=== PATIENT | male | born 1950 | race Caucasian/White ===

== ENCOUNTER 2016-05-25 18:25 | Emergency (ER) | payer OTHER ==
[~2016-05-25] VITALS: Ht 177.8 cm; Wt 75.0 kg
[~2016-05-25 18:25] MED LIST: DIG125 PO; QTP25T PO; REM15 PO; SERT25TA2 PO; WARF4TAB2 PO
[2016-05-25 18:30] VITALS: BP 147/104; PULSE 73; RESP 18; O2SAT 99
[2016-05-25 19:07] LABS: BASOPHILS % (AUTO) 0.5 % (0-3); EOSINOPHILS % (AUTO) 0.5 % (0-5); MONOCYTES % (AUTO) 9.8 % (4-12); Mean Corpuscular Hemoglobin 34.9 pg (27.0-35.0); Mean Corpuscular Volume 97.9 fL (81-100); NEUTROPHILS % (AUTO) 52.2 % (40-74); Platelet Count 162 bil/L (150-400)
--- NOTE | 2016-05-25 19:33 | ED.REPORT ---
HPI-Chest Pain 40 and Over Date of Service May 25, 2016 ED Provider: Dr. Casey Law D.O. A 65 year old male with a history of anxiety, depression, and atrial fibrillation on Warfarin s/p pacemaker placement presents to the ED with chest pain onset one hour prior to arrival. The pain is described as pressure. Associated symptoms include headache and nausea. The patient denies myalgias, nuchal rigidity, or fever. He has not had similar pain in the past. Nursing Notes Stated Complaint: HEADACHE,NAUSEA, CHEST PAIN Chief Complaint: Chest Pain Nursing Notes Reviewed: Yes Allergies: Coded Allergies: No Known Allergies (Unverified Allergy, Unknown, 12/01/15) Scheduled Digoxin-Expunged Drug, Do Not Renew! (Digoxin-Expunged Drug, Do Not Renew!) 125 Mcg Tablet 125 MCG PO DAILYWL Mirtazapine-Expunged Drug, Do Not Renew! (Remeron-Expunged Drug, Do Not Renew!) 15 Mg Tablet 15 MG PO HS QUEtiapine-Expunged Drug, Do Not Renew! (SEROquel-Expunged Drug, Do Not Renew!) 25 Mg Tablet 50 MG PO BID Sertraline-Expunged Drug, Choose New Med! (Sertraline-Expunged Drug, Choose New Med!) 25 Mg Tablet 25 MG PO DAILY Warfarin Sodium Inactive Drug Do Not Use (Coumadin Inactive Drug Do Not Use) 4 Mg Tablet 4 MG PO DAILYWD General Time Seen by MD: 19:33 Chief Complaint Chest pain Hx Obtained From: Patient Arrived By: Walk-in Sudden in Onset?: Yes Onset Occurred: 1 - 4 hours ago Symptom Duration: Since onset Location: : Chest left: Chest right Quality: Painful, Pressure Severity: Current: Moderate Severity: Maximum: Moderate Associated with: Reports: Nausea, Denies: Fever Pertinent Negative: Relieved by nothing Context Related History: Reports: Anxiety disorder, Arrhythmia Recent Healthcare: No recent doctor visit Similar Sx Previous: No Past Medical History Past Medical History Notes: 07/02/12 Echo results: Interpretation Summary 1. Mildly dilated left ventricle with mild global hypokinesis with an estimated EF of 40-45%. 2. Normal right ventricular size and systolic function. 3. Mild to moderate mitral regurgitation into a dilated left atrium. Past Medical History Atrial Fibrillation on Warfarin Anxiety Depression Past Surgical History Pacemaker w/ defibrillator Prostatectomy Smoking History Current Every Day Smoker Social History Other Social History: Good social support, Lives alone, Local resident Ambulatory Status Independent Review of Systems Review of Systems Note: - Nuchal rigidity Constitutional: Denies: Fever Cardiovascular: Reports: Chest pain GI: Reports: Nausea Musculoskeletal: Denies: Myalgia Neurologic: Reports: Headache Complete sys rev & neg: except as marked. Physical Exam Initial Vital Signs Vital Signs (First) Date Time Temp Pulse Resp B/P Pulse Ox O2 Delivery O2 Flow Rate FiO2 05/25/16 18:30 36.4 73 18 147/104 99 Room Air Initial VS: Reviewed Head / Eyes: Atraumatic, Normocephalic ENT: Conjunctiva normal, No scleral icterus Neck: Supple, Full range of motion Skin: Warm, Dry, No cyanosis Neurologic: Alert, Oriented, Nonfocal Psychiatric: Mood/affect normal, Behavior normal, Normal thought content General/Constitutional: Awake, Alert, No acute distress Respiratory / Chest: Breath sounds NL, Breath sounds = bilat, No respiratory distress Cardiovascular: Heart rate NL, Heart sounds NL Heart Rate / Rhythm: Positive: Irregular rhythm Interpretation & Diagnostics Lab Results Interpretation Result Diagram: 05/25/16 1900 05/25/16 190 Test 05/25/16 19:00 05/25/16 21:55 White Blood Count 5.7th/mm3 (3.8-10.1) Red Blood Count 4.33mil/mm3 (4.40-5.80) Hemoglobin 15.1g/dL (13.8-17.2) Hematocrit 42.4% (41.0-50.0) Mean Corpuscular Volume 97.9fL (81-100) Mean Corpuscular Hemoglobin 34.9pg (27.0-35.0) Mean Corpuscular Hemoglobin Concent 35.6% (32.0-37.0) Red Cell Distribution Width 12.8% (12.3-15.4) Platelet Count 162bil/L (150-400) Neutrophils (%) (Auto) 52.2% (40-74) Lymphocytes (%) (Auto) 36.7% (14-46) Monocytes (%) (Auto) 9.8% (4-12) Eosinophils (%) (Auto) 0.5% (0-5) Basophils (%) (Auto) 0.5% (0-3) Prothrombin Time 32.9sec (8.1-12.5) Prothromb Time International Ratio 3.01ratio Sodium Level 133mEq/L (134-144) Potassium Level 4.8mEq/L (3.5-5.2) Chloride Level 94mEq/L (97-108) Carbon Dioxide Level 25mmol/L (18-29) Blood Urea Nitrogen 19mg/dL (8-27) Creatinine 0.88mg/dL (0.76-1.27) Estimat Glomerular Filtration Rate 93mL/min (>59) Glucose Level 62mg/dL (60-99) Calcium Level 9.0mg/dL (8.5-10.1) Magnesium Level 2.0mg/dL (1.6-2.6) Total Bilirubin 0.7mg/dL (0.0-1.2) Aspartate Amino Transf (AST/SGOT) 38U/L (0-50) Alanine Aminotransferase (ALT/SGPT) 33U/L (0-44) Alkaline Phosphatase 59U/L (25-160) Total Protein 7.1g/dL (6.4-8.4) Albumin 4.2g/dL (3.4-5.0) Hold [place] Top Tube Received (Received) Troponin T 0.010ug/L (0.0-0.011) ECG Interpretation ECG Interpretation: ECG 1851 Atrial fibrillation rate [address] segments No signs of STEMI Time: 18:51 Interpreted by: ED physician ECG Interpretation: Atrial fibrillation rate 72 Anteroseptal infarct, age indeterminate Prolonged QT interval No STEMI Time: 19:44 Interpreted by: ED physician X-Ray Chest Interpretation Chest Xray Interpretation: IMPRESSION: No acute cardiopulmonary disease process. Dictated by: Norma Jones MD, PhD on 05/25/2016 at 20:21 View: Portable, 1 view Interpretation / Wet Read by: Interpret - Radiologist CT Head Interpretation IMPRESSION: No acute intracranial disease process. Dictated by: Norma Jones MD, PhD on 05/25/2016 at 21:13 Study: Head CT no contrast Interpretation / Wet Read by: Interpret - Radiologist Re-Eval/Medical Decision Med Decision/Clinical Course Mr. Fuller is a very pleasant 65-year-old male who presents for evaluation of headache and chest pain. He states that it is dull headache all day today while coming to the hospital he developed an ache in his chest that seemed to last for about 5 minutes. The ache in his chest is now gone. He still has a dull headache. He does not have any ripping or tearing pain. He did not have any fever or any nuchal rigidity. On my examination his neck was supple. His cranial nerves were intact. His cardiopulmonary examination is otherwise normal. He had symmetric pulses bilaterally. EKG did not show evidence of acute IA. Serial troponins were normal. Head scan was negative for acute hemorrhage. My recommendations were hospital observation for serial troponins and watching him closely secondary to headache. Mr. Fuller declines this. Initially when I walked in the room he was dressed and ready to go. He certainly did not wish to stay any longer. I warned him that if the chest pain returned this certainly could be a heart attack. He agrees to return if he has any problems. Discharge was sober and lucid and certainly could make his own medical decisions. He made an informed decision. He was ready to go. We did give him a dose of acetaminophen which helped the headache. We will call a taxi cab to take him home. He does agree to follow-up tomorrow. Source of Hx: Old records Time of Eval: 20:47 Patient Status: Condition improved Re-Evaluation/Progress Note: Patient rechecked. He had his clothes on and stated he was "ready to escape." Discussed with patient plan for head CT. Patient agrees with plan, is convinced to stay, and all questions were addressed. Time of Eval: 22:20 Patient Status: Condition improved Re-Evaluation/Progress Note: Discussed with patient x-ray, CT, and lab results. Recommended admit or several repeat troponin levels. Patient declines and would prefer to be discharged. Discussed with patient diagnosis, follow-up instructions, and return to the ER instructions. Patient agrees with plan for care and all questions were addressed. Counseled Regarding: Diagnosis, Lab results, Need for follow-up, When/why to return to ED Discharge & Departure Primary Impression: Headache Headache type: unspecified Headache chronicity pattern: unspecified pattern Intractability: not intractable Qualified Code: R51 - Headache Additional Impression: Chest pain Chest pain type: precordial chest pain Qualified Code: R07.2 - Precordial pain Disposition: Home Discharge Condition All VS Reviewed: Yes Condition: Stable Patient Instructions: Acute Headache (ED), Chest Pain (ED) Additional Instructions: The CAT scan of your brain did not show any acute pathology. The serial heart blood tests were normal. The EKG did not show signs of a heart attack. Your chest x-ray was normal. Your blood pressure was symmetric in both arms and the pain was not consistent with an aortic dissection. The cause of your symptoms is uncertain. You need to be seen in follow-up tomorrow. Call your doctor tomorrow and discuss the chest pain and headache. Do not hesitate to return to the emergency department if any further chest pain or if you develop a headache, fever, or neck stiffness. It was very nice meeting you. Your INR is 3.0 Referrals: [facility] (PCP) Amber Attestation Portions of this note were transcribed by Patricia Truong. I, Dr. Law, personally performed the history, physical exam, and medical decision-making; I reviewed and confirmed the accuracy of the information in the transcribed note. Signed by: Amber Sabillon, 05/25/2016, 23:11 copies to: [facility] Casey Law DO May 25, 2016 19:33 PATRICIA TRUONG May 25, 2016 20:42
[2016-05-25 19:39] LABS: TROPONIN T < 0.010 ug/L (0.0-0.011)
[2016-05-25 19:54] LABS: INR 3.01 ratio
--- NOTE | 2016-05-25 20:24 | DRSVH ---
PROCEDURE: X-RAY CHEST ONE VIEW, PORTABLE ([id number]) INDICATIONS: chest pain TECHNIQUE: One view of the chest was acquired. COMPARISON: [facility], CT, CT ANGIO CHEST PE, 12/01/2015, 17:54. FINDINGS: Surgical changes and devices: Single lead cardiac pacer.. Lungs and pleura: No pleural effusions or pneumothorax. Lungs are clear. Mediastinum: Mediastinal contours appear normal. Heart size is normal. Bones and chest wall: Old left-sided rib fractures are noted. No suspicious bony lesions. Overlyin g soft tissues appear unremarkable. IMPRESSION: No acute cardiopulmonary disease process. Dictated by: Norma Jones MD, PhD on 05/25/2016 at 20:21 Approved by: Norma Jones MD, PhD on 05/25/2016 at 20:22
--- NOTE | 2016-05-25 21:17 | DRSVH ---
PROCEDURE: CT BRAIN WITHOUT CONTRAST ([id number]) INDICATIONS: headache, INR 3 TECHNIQUE: Noncontrast 4.5 mm thick angled axial sections acquired from the foramen magnum to the vertex, with c oronal reformats. COMPARISON: [facility], CT, BRAIN W/O CONTRAST, 02/16/2012, 19:35. FINDINGS: Image quality: Excellent. CSF spaces: Basal cisterns are patent. No extra-axial fluid collections. The ventricles are symmet desire in size and shape. Brain: No intracranial bleeds or masses. There is cerebral volume loss for age, with resultant vent ricular and sulcal prominence. Chronic infarcts in a right MCA distribution involving the right front al lobe and right insula are again noted.. There are periventricular and deep white matter chronic sm all vessel ischemic changes. There is intracranial internal carotid artery atherosclerosis. Skull and face: Calvarium appears intact, without suspicious lesions. Postsurgical changes compatibl e with prior ORIF of right inferior orbital wall fracture noted. Sinuses: Visualized sinuses and mastoids are clear. IMPRESSION: No acute intracranial disease process. Dictated by: Norma Jones MD, PhD on 05/25/2016 at 21:13 Approved by: Norma Jones MD, PhD on 05/25/2016 at 21:15
[2016-05-25 22:52] VITALS: BP 152/98; PULSE 78; RESP 16; O2SAT 98
== END 2016-05-25 22:53 | disposition home or self-care (01) ==
LOC: SED 18:25
DX: R51 Headache (principal); R07.2 Precordial pain; R11.0 Nausea; I48.91 Unspecified atrial fibrillation; F17.200 Nicotine dependence, unspecified, uncomplicated; Z95.0 Presence of cardiac pacemaker; Z79.01 Long term (current) use of anticoagulants

== ENCOUNTER 2016-09-26 08:00 | Emergency (ER) | payer OTHER ==
[2016-09-26 08:00] VITALS: BP 141/107; PULSE 67; RESP 20; O2SAT 97
--- NOTE | 2016-09-26 08:12 | ED.REPORT ---
HPI-General Illness Date of Service Sep 26, 2016 ED Provider: Yashira Vega Patient is a 66 year old male on Warfarin with a hx of CVA, afib, and a psychiatric admission (2011) who presents to the ED in police custody with concerns of violence and erratic behavior. 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 It is reported that he broke off a small ramirez in the keyhole of the building and was told to use the correct ramirez but continued to be erratic. Upon presentation, police recommended he be placed in a psychiatric room. Upon interview, patient believes that he was purposely not being let in the building and that "there is no reason she shouldn't have let me in. She called the police and has done this twice now. Once she did this when it was real cold out". He denies fever, pain, suicidal ideations, or any other symptoms. His INR was checked last week. He has not been taking his anxiety medication. Nursing Notes Stated Complaint: PSYCH Nursing Notes Reviewed: Yes Allergies: Coded Allergies: No Known Allergies (Unverified Allergy, Unknown, 12/01/15) Scheduled Digoxin-Expunged Drug, Do Not Renew! (Digoxin-Expunged Drug, Do Not Renew!) 125 Mcg Tablet 125 MCG PO DAILYWL Mirtazapine-Expunged Drug, Do Not Renew! (Remeron-Expunged Drug, Do Not Renew!) 15 Mg Tablet 15 MG PO HS QUEtiapine-Expunged Drug, Do Not Renew! (SEROquel-Expunged Drug, Do Not Renew!) 25 Mg Tablet 50 MG PO BID Sertraline-Expunged Drug, Choose New Med! (Sertraline-Expunged Drug, Choose New Med!) 25 Mg Tablet 25 MG PO DAILY Warfarin Sodium Inactive Drug Do Not Use (Coumadin Inactive Drug Do Not Use) 4 Mg Tablet 4 MG PO DAILYWD General Time Seen by MD: 08:11 Chief Complaint Other (Unusual behavior ) Hx Obtained From: Patient, Police Arrived By: Police Onset Occurred: Just prior to arrival Past Medical History Past Medical History Notes: 07/02/12 Echo results: Interpretation Summary 1. Mildly dilated left ventricle with mild global hypokinesis with an estimated EF of 40-45%. 2. Normal right ventricular size and systolic function. 3. Mild to moderate mitral regurgitation into a dilated left atrium. Psych admission 2011 Past Medical History Atrial Fibrillation on Warfarin Anxiety Depression CVA affecting the L face Memory deficits Reports: Cancer Past Surgical History Pacemaker w/ defibrillator Prostatectomy Smoking History Current Every Day Smoker Social History Other Social History: Good social support, Lives alone, Local resident Ambulatory Status Independent Review of Systems +unusual behavior -pain Full Review of Systems Constitutional: Denies: Fever Psychiatric: Denies: Suicidal ideation Complete sys rev & neg: except as marked. Physical Exam Vital Signs Vital Signs Date Time Temp Pulse Resp B/P Pulse Ox O2 Delivery O2 Flow Rate FiO2 09/26/16 08:00 36.2 67 20 141/107 97 Room Air Initial VS: Reviewed Head / Eyes: Atraumatic, Normocephalic Neck: Full range of motion Abdomen / GI: Soft, Non-tender Skin: Warm, Dry Neurologic: Alert, Oriented, Nonfocal General/Constitutional: Awake, Alert, Well developed, Cooperative Respiratory / Chest: Breath sounds NL, Breath sounds = bilat, No respiratory distress Heart Rate / Rhythm: Positive: Irreg irregular rhythm, Tachycardia Psychiatric: Mood NL Does not appear intoxicated. Calm. Good eye contact Interpretation & Diagnostics Lab Results Interpretation Result Diagram: 09/26/16 0900 09/26/16 0900 Test 09/26/16 09:00 09/26/16 09:30 09/26/16 10:02 White Blood Count 7.1th/mm3 (3.8-10.1) Red Blood Count 4.18mil/mm3 (4.40-5.80) Hemoglobin 14.5g/dL (13.8-17.2) Hematocrit 41.9% (41.0-50.0) Mean Corpuscular Volume 100.2fL (81-100) Mean Corpuscular Hemoglobin 34.7pg (27.0-35.0) Mean Corpuscular Hemoglobin Concent 34.6% (32.0-37.0) Red Cell Distribution Width 12.8% (12.3-15.4) Platelet Count 235bil/L (150-400) Neutrophils (%) (Auto) 63.3% (40-74) Lymphocytes (%) (Auto) 20.8% (14-46) Monocytes (%) (Auto) 14.8% (4-12) Eosinophils (%) (Auto) 0.1% (0-5) Basophils (%) (Auto) 0.4% (0-3) Prothrombin Time 21.4sec (8.1-12.5) Prothromb Time International Ratio 1.97ratio Sodium Level 132mEq/L (134-144) Potassium Level 5.4mEq/L (3.5-5.2) Chloride Level 96mEq/L (97-108) Carbon Dioxide Level 22mmol/L (18-29) Blood Urea Nitrogen 20mg/dL (8-27) Creatinine 0.89mg/dL (0.76-1.27) Estimat Glomerular Filtration Rate 91mL/min (>59) Glucose Level 92mg/dL (60-99) Calcium Level 9.4mg/dL (8.5-10.1) Total Bilirubin 0.6mg/dL (0.0-1.2) Aspartate Amino Transf (AST/SGOT) 31U/L (0-50) Alanine Aminotransferase (ALT/SGPT) 17U/L (0-44) Alkaline Phosphatase 65U/L (25-160) Total Protein 7.1g/dL (6.4-8.4) Albumin 3.8g/dL (3.4-5.0) Digoxin Level 0.4nG/mL (0.9-2.0) Urine Color Yellow (YELLOW) Urine Appearance Hazy (CLEAR,HAZY) Urine pH 6.0 (5.0-8.0) Urine Specific [place] 1.020 (1.003-1.035) Urine Protein Negativemg/dL (NEG,TRACE) Urine Glucose (UA) Negativemg/dL (NEGATIVE) Urine Ketones 15mg/dL (NEGATIVE) Urine Occult Blood Negative (NEGATIVE) Urine Nitrite Negative (NEGATIVE) Urine Bilirubin Negative (NEGATIVE) Urine Urobilinogen Normalmg/dL (NORMAL) Urine Leukocyte Esterase Negative (NEGATIVE) Urine RBC 0-2/hpf (0-2) Urine WBC 0-5/hpf (0-5) Urine Epithelial Cells Occasional/hpf (NONE-MOD) Urine Crystals None seen (NONE SEEN) Urine Bacteria Few/hpf (NONE-FEW) Urine Hyaline Casts None/lpf (NONE) Urine Granular Casts None seen (NONE SEEN) Urine Waxy Casts None seen (NONE SEEN) Urine Red Blood Cell Casts None seen (NONE SEEN) Urine White Blood Cell Casts None seen (NONE SEEN) Urine Mucus Present (None Seen) Urine Trichomonas None seen (NONE SEEN) Urine Yeast None (NONE SEEN) Urinalysis Comment None Urine Culture Reflexed Not indicated Hold [place] Top Tube Received (Received) Re-Eval/Medical Decision Med Decision/Clinical Course U tox is negative Patient has calm down nicely. His remained stable throughout his emergency room stay. His being discharged with his daughter who will take him back to his apartment Discharge & Departure Primary Impression: Acute situational disturbance Disposition: Home Additional Instructions: Thank you for letting us take care of you today. We found no medical problems today. You have calmed down nicely after your frustrating morning. I hope the rest of your day goes much better Referrals: [facility] (PCP) copies to: [facility]; Araceli Mills MD, Shawna L MD Sep 26, 2016 08:12 JALEN BARAJAS Sep 26, 2016 08:22
[2016-09-26 09:14] LABS: BASOPHILS % (AUTO) 0.4 % (0-3); EOSINOPHILS % (AUTO) 0.1 % (0-5); MONOCYTES % (AUTO) 14.8 % (4-12); Mean Corpuscular Hemoglobin 34.7 pg (27.0-35.0); Mean Corpuscular Volume 100.2 fL (81-100); NEUTROPHILS % (AUTO) 63.3 % (40-74); Platelet Count 235 bil/L (150-400)
[2016-09-26 09:29] LABS: INR 1.97 ratio
[2016-09-26 10:05] LABS: APPEARANCE,URINE HAZY (CLEAR,HAZY); COLOR,URINE YELLOW (YELLOW)
[2016-09-26 10:06] LABS: OCCULT BLOOD,URINE NEGATIVE (NEGATIVE); UROBILINOGEN,URINE NORMAL (NORMAL)
[2016-09-26 13:30] VITALS: BP 129/91; PULSE 80; RESP 16; O2SAT 99
[2016-09-26 14:22] VITALS: BP 129/91; PULSE 80; RESP 16; O2SAT 99
== END 2016-09-26 14:23 | disposition home or self-care (01) ==
LOC: SED 08:00
DX: F43.0 Acute stress reaction (principal); Z86.73 Personal history of transient ischemic attack (TIA), and cerebral infarction without residual deficits; Z79.01 Long term (current) use of anticoagulants; F17.200 Nicotine dependence, unspecified, uncomplicated

== ENCOUNTER 2016-12-27 09:37 | Emergency (ER) | payer OTHER ==
[~2016-12-27] VITALS: Ht 180.3 cm; Wt 68.2 kg
[2016-12-27 09:43] VITALS: BP 134/94; PULSE 69; RESP 16; O2SAT 99
--- NOTE | 2016-12-27 09:43 | ED.REPORT ---
HPI-Extremity Problem Lower Date of Service Dec 27, 2016 ED Provider: Kareem Wong MD A 66 year old male with a history of atrial fibrillation, anxiety and CVA with memory deficits presents to the ED complaining of left ankle swelling. The swelling has been present for one week, and the pt believes that it is related to an incident of his knee buckling a week ago. The ankle was hyperextended when this occurred and has been swollen since that time. The pt admits to itching in the area due to stretching of the skin but denies pain. He is able to ambulate without difficulty. Nursing Notes Stated Complaint: LEFT ANKLE PAIN Chief Complaint: Extremity Trauma Nursing Notes Reviewed: Yes Allergies: Coded Allergies: No Known Allergies (Unverified Allergy, Unknown, 12/27/16) Scheduled Digoxin-Expunged Drug, Do Not Renew! (Digoxin-Expunged Drug, Do Not Renew!) 125 Mcg Tablet 125 MCG PO DAILYWL Mirtazapine-Expunged Drug, Do Not Renew! (Remeron-Expunged Drug, Do Not Renew!) 15 Mg Tablet 15 MG PO HS QUEtiapine-Expunged Drug, Do Not Renew! (SEROquel-Expunged Drug, Do Not Renew!) 25 Mg Tablet 50 MG PO BID Sertraline-Expunged Drug, Choose New Med! (Sertraline-Expunged Drug, Choose New Med!) 25 Mg Tablet 25 MG PO DAILY Warfarin Sodium Inactive Drug Do Not Use (Coumadin Inactive Drug Do Not Use) 4 Mg Tablet 4 MG PO DAILYWD General Time Seen by MD: 09:43 Chief Complaint Ankle injury left Hx Obtained From: Patient, EMS Arrived By: Ambulance Onset Occurred: 1 week ago Symptom Duration: Since onset Recent Healthcare: Recent doctor visit Similar Sx Previous: No Past Medical History Past Medical History Notes: 07/02/12 Echo results: Interpretation Summary 1. Mildly dilated left ventricle with mild global hypokinesis with an estimated EF of 40-45%. 2. Normal right ventricular size and systolic function. 3. Mild to moderate mitral regurgitation into a dilated left atrium. Psych admission 2011 Past Medical History Atrial Fibrillation on Warfarin Anxiety Depression CVA affecting the L face and memory Memory deficits Reports: Cancer Past Surgical History Pacemaker w/ defibrillator Prostatectomy Smoking History Current Every Day Smoker Social History Other Social History: Good social support, Lives alone, Local resident Ambulatory Status Independent Review of Systems Musculoskeletal: Reports: Extremity swelling, Denies: Back pain, Extremity pain, Neck pain Skin: Reports Itching, Denies Rash Complete sys rev & neg: except as marked. Respiratory: Denies: Non-productive cough, Shortness of breath Cardiovascular: Denies: Chest pain GI: Denies: Abdominal pain, Vomiting Physical Exam Initial Vital Signs Vital Signs (First) Date Time Temp Pulse Resp B/P Pulse Ox O2 Delivery O2 Flow Rate FiO2 12/27/16 09:43 36.4 69 16 134/94 99 Room Air Initial VS: Reviewed Lower Extremity / Pelvis / MS: Full range of motion, Neurologic intact, Vascular intact 1+ unilateral left lower extremity edema extending to distal tibia swelling around ankle with good range of motion ambulatory Ankle / Foot: Full range of motion, Neurologic intact, Vascular intact General/Constitutional: Awake, Alert Respiratory / Chest: Atraumatic, Breath sounds NL, Breath sounds = bilat, No respiratory distress Cardiovascular: Heart rate NL, Regular rhythm, Heart sounds NL Skin: Atraumatic, Color NL, No rash, Warm, Dry Neurologic: Oriented X3, Speech NL, No sensory deficits Head / Eyes: Atraumatic, Normocephalic, PERRL, EOMI ENT: Atraumatic, Airway patent, Mucous membranes moist Neck: Atraumatic, Supple, Full range of motion Abdomen: Atraumatic, Soft, Non-tender Back: Atraumatic, Full range of motion Upper Extremity / MS: Atraumatic, Full range of motion Psychiatric: Affect NL, Mood NL Interpretation & Diagnostics Lab Results Interpretation Test 12/27/16 10:10 Hold Purple Top Tube Received (Received) Prothrombin Time 26.2sec (8.1-12.5) Prothromb Time International Ratio 2.41ratio D-Dimer 0.23mg/L FEU (<0.50) Hold Red Top Tube Received (Received) Hold Bangs Top Tube Received (Received) Hold [place] Top Tube Received (Received) X-Ray Interpretation Xray Interpretation: IMPRESSION: 1. Diffuse soft tissue swelling. No effusion or visible fracture. . Dictated by: Rj Perez M.D. on 12/27/2016 at 10:37 Approved by: Rj Perez M.D. on 12/27/2016 at 10:40 X-Ray Ordered: Ankle left Interpretation / Wet Read by: Interpret - Radiologist Re-Eval/Medical Decision Med Decision/Clinical Course Swelling due to a ankle injury. Very clearly not infected. D-dimer negative and INR therapeutic unlikely to be deep vein thrombosis. Splint applied return and follow-up precautions given Re-Evaluation/Progress : Time of Eval: 10:56 Patient Status: Condition improved Re-Evaluation/Progress Note: Pt rechecked, who is resting. The diagnosis and plan for discharge are discussed. The pt understands and agrees with the plan. All questions are addressed at this time. Counseled Regarding: Diagnosis, Lab results, Need for follow-up, When/why to return to ED Discharge & Departure Impression: Primary Impression: Ankle sprain Encounter type: initial encounter Involved ligament of ankle: unspecified ligament Laterality: left Qualified Code: S93.402A - Sprain of unspecified ligament of left ankle, initial encounter Disposition: Home Discharge Condition All VS Reviewed: Yes Condition: Stable Patient Instructions: Ankle Sprain (GEN) Additional Instructions: Use Tylenol as needed for your ankle. Rest, use the ankle stirrup as provided. Follow up with your regular doctor as needed. Return to the ER for any concerning signs or symptoms. Referrals: [facility] (PCP) Scribe Attestation Portions of this note were transcribed by Tere Pa. I, Dr. Wong personally performed the history, physical exam and medical decision-making; I reviewed and confirmed the accuracy of the information in the transcribed note. copies to: [facility] Kareem Wong DO Dec 27, 2016 09:43 TERE PA Dec 27, 2016 09:58
--- NOTE | 2016-12-27 10:41 | DRSVH ---
PROCEDURE: X-RAY LEFT ANKLE, MINIMUM THREE VIEWS ([id number]) INDICATIONS: pain post injury with swelling TECHNIQUE: 3 views of the ankle were acquired. COMPARISON: None. FINDINGS: Bones: No fractures or dislocations. Ankle mortise is normally aligned. No suspicious bony lesions . Well-corticated bony density at the tip of the medial malleolus, likely accessory ossicle. Soft tissues: No tibiotalar joint effusion. Achilles tendon appears normal. Diffuse, bilateral soft tissue swelling. Small vessel calcifications which could reflect diabetes. IMPRESSION: 1. Diffuse soft tissue swelling. No effusion or visible fracture. . Dictated by: Rj Perez M.D. on 12/27/2016 at 10:37 Approved by: Rj Perez M.D. on 12/27/2016 at 10:40
[2016-12-27 10:51] LABS: D-Dimer 0.23 mg/L FEU (<0.50); INR 2.41 ratio
[2016-12-27 11:13] VITALS: BP 141/94; PULSE 92; RESP 16; O2SAT 100
== END 2016-12-27 11:15 | disposition home or self-care (01) ==
LOC: EDUNIT# 09:37 → EDBD 09:37 → SED 09:37
DX: S93.492A Sprain of other ligament of left ankle, initial encounter (principal); X50.9XXA Other and unspecified overexertion or strenuous movements or postures, initial encounter; Y93.89 Activity, other specified; Y92.89 Other specified places as the place of occurrence of the external cause; Y99.8 Other external cause status; L29.9 Pruritus, unspecified; I69.311 Memory deficit following cerebral infarction; I48.91 Unspecified atrial fibrillation; F41.8 Other specified anxiety disorders; F17.200 Nicotine dependence, unspecified, uncomplicated; Z95.0 Presence of cardiac pacemaker; Z79.01 Long term (current) use of anticoagulants